=== PATIENT | female | born 1950 ===

== ENCOUNTER 2018-12-16 14:50 | Outpatient (CLI) | payer MEDICARE, OTHER ==
[~2018-12-16] VITALS: Ht 160 cm; Wt 99.2 kg
[2018-12-16] MEDS ORDERED: INDA1.25 PO (15:14)
[2018-12-16] MEDS ORDERED: POTA10TA36 PO (15:14)
[2018-12-16] MEDS ORDERED: ASPI-586 PO (15:14)
[2018-12-16] MEDS ORDERED: PHEN97.2 PO (15:14)
[2018-12-16] MEDS ORDERED: CARV6.252 PO (15:14)
== END 2018-12-16 15:16 | disposition home or self-care (01) ==
LOC: PREOP 14:50
PROVIDERS: ATTEND Pediatrics
DX: Z01.818 Encounter for other preprocedural examination (principal)